=== PATIENT | male | born 1940 | race Caucasian/White ===

== ENCOUNTER 2017-09-25 14:08 | Emergency (ER) | payer MEDICARE ==
[2017-09-25 14:25] VITALS: BP 155/76
--- NOTE | 2017-09-25 14:41 | UC ---
Migue Gilmore Jason, scribed for Christian Freed MD on 09/25/17 at 1430 . Dizzy HPI HPI Summary: This patient is a 76 year old M presenting to [facility] accompanied by with a chief complaint of dizziness since today at 13:40. He states that he has been feeling dizzy for a couple of days, as if I was beginning to black out. Additionally, today he began feeling dizzy after a workout at the gym and experienced chest pain at 1340 along with the dizziness. He includes that he has experienced this pain for a long time. Its not new; the only thing thats new is that the pain came at the same time as the dizziness. The patient states he has been working out off and on. The patient rates the pain 0/10 in severity. Symptoms aggravated by nothing. Symptoms alleviated by nothing. Patient reports lightheadedness, and mild chest pain. Patient denies nausea, sweat, vomiting, and a hx of diabetes and smoking. - History Of Current Complaint Stated Complaint: CHEST PAIN/ DIZZINESS Time Seen by Provider: 09/25/17 14:17 Hx Obtained From: Patient Onset/Duration: Gradual Onset, Lasting Days - since a "few days ago", Resolved Pain Intensity: 0 Pain Scale Used: 0-10 Numeric Character: Lightheaded - as if eh was about to black out Aggravating Factor(s): Nothing Alleviating Factor(s): Nothing Associated Signs And Symptoms: Positive: Negative - nausea, sweat, vomiting, Chest Pain - mild - Allergies/Home Medications Allergies/Adverse Reactions: Allergies Allergy/AdvReac Type Severity Reaction Status Date / Time No Known Allergies Allergy Verified 04/26/17 10:10 PMH/Surg Hx/FS Hx/Imm Hx Previously Healthy: Yes Endocrine History: Other - negative diabetes Other Endocrine History: . - Surgical History Surgical History: Yes Surgery Procedure, Year, and Place: BILATERAL KNEE REPLACEMENT 1999,2007. BILAT CATARACT [facility]. SURGERY DETACHED RETINA-PER PT INJECTED AIR BUBBLE AND FIXED WITH LASER-OK PER AICHA. LUMBAR DISCECTOMY - Social History Alcohol Use: Daily Alcohol Amount: 2 glasses of wine Substance Use Type: None Smoking Status (MU): Never Smoked Tobacco Review of Systems Constitutional: Negative - sweat Cardiovascular: Chest Pain - mild Gastrointestinal: Negative - nausea, vomiting Neurological: Other - lightheaded All Other Systems Reviewed And Are Negative: Yes Physical Exam - Summary Physical Exam Summary: General: well-appearing, no pain distress Skin: warm, color reflects adequate perfusion, dry Head: normal Eyes: EOMI, ALEXI ENT: normal Neck: supple, nontender Respiratory: CTA, breath sounds present Cardiovascular: RRR Abdomen: soft, nontender Bowel: present Musculoskeletal: normal, strength/ROM intact Neurological: normal, sensory/motor intact, A&O x3 Psychological: affect/mood appropriate Triage Information Reviewed: Yes Vital Signs: Initial Vital Signs Temp 98.1 F 09/25/17 14:14 Pulse 59 09/25/17 14:14 Resp 18 09/25/17 14:14 BP 155/76 09/25/17 14:14 Pulse Ox 99 09/25/17 14:14 Vital Signs Reviewed: Yes Dizzy Course/Dx - Course Course Of Treatment: BP noted and advised to follow up with PCP. Medications reviewed. Allergies noted. NO CHEST PAIN IN CLINIC. NO ISCHEMIC CHANGES ON EKG. DISCUSSED GETTING FURTHER EVALUATION AND CARE IN THE ED AND GOING BY AMBULANCE. PATIENT DECLINES THE AMBULANCE. DISCUSSED WITH DR RIVERA IN THE ED. I RECOMMENDED GOING DIRECTLY TO THE ED. - Differential Dx/Diagnosis Provider Diagnoses: DIZZINESS. LIGHTHEADEDNESS. CHEST PAIN. elevated BP without dx of HTN. Discharge - Discharge Plan Condition: Stable Disposition: HOME Patient Education Materials: Chest Pain (ED), Lightheadedness (ED), Dizziness ( ED) Referrals: Malcom Workman MD [Primary Care Provider] - Additional Instructions: Your blood pressure was elevated during todays visit; please follow up with your primary care provider within a week for further evaluation. The documentation as recorded by the Migue altamirano Jason accurately reflects the service I personally performed and the decisions made by me, Christian Freed MD.
== END 2017-09-25 14:44 | disposition home or self-care (01) ==
LOC: UCEAST 14:08
DX: R42 Dizziness and giddiness (principal); R07.89 Other chest pain; Z96.653 Presence of artificial knee joint, bilateral; Z98.42 Cataract extraction status, left eye; Z98.41 Cataract extraction status, right eye
CPT/HCPCS: 93005; 99212; G0463

== ENCOUNTER 2017-09-25 14:54 | Observation (INO) | payer MEDICARE ==
[2017-09-25] MEDS ORDERED: Aspirin Low Dose CHEW TAB* 81 MG PO ONE (15:18)
[2017-09-25 15:36] LABS: ABS Basophils 0 10^3/ul (0-0.2); ABS Eosinophils 0.2 10^3/ul (0-0.6); ABS Lymphocytes 1.6 10^3/ul (1.0-4.8); ABS Monocytes 0.6 10^3/ul (0-0.8); ABS Neutrophils 4.7 10^3/ul (1.5-7.7); ABS Nucleated RBC 0 10^3/ul; Eosinophil % 2.7 % (0-6); Hematocrit 45 % (42-52); Hemoglobin 15.2 g/dl (14.0-18.0); Lymphocyte % 22.3 % (25-47); Mean Corpuscular HGB Conc 34 g/dl (31-36); Mean Corpuscular Hemoglobin 32 pg (27-31); Mean Corpuscular Volume 96 fL (80-94); Mean Platelet Volume 11 um3 (7.4-10.4); Nucleated Red Blood Cells % 0; Platelet Count 142 10^3/ul (150-450); Red Blood Count 4.71 10^6/ul (4.0-5.4); Red Cell Distribution Width 13 % (10.5-15); White Blood Count 7.1 10^3/ul (3.5-10.8)
[2017-09-25 15:45] LABS: INR 0.85 (0.77-1.02)
--- NOTE | 2017-09-25 15:45 | RAD ---
Indication: Dizziness. CT of the brain was performed without contrast. Ventricular structures are midline. No midline shift is noted. The extra-axial spaces are prominent consistent with cerebral atrophy.. There is no intracranial mass or hemorrhage. Periventricular lucency consistent with chronic ischemic White matter changes. Mastoid air cells and paranasal sinuses are otherwise. IMPRESSION: Chronic ischemic White change without evidence of intracranial mass or hemorrhage.
[2017-09-25 15:49] LABS: EGFR Non-African American 66.1 (>60)
--- NOTE | 2017-09-25 15:58 | RAD ---
Indication: Chest pain. Single frontal view of the chest performed at 1519 hours was reviewed. No prior study is available for comparison. No mediastinal shift is noted. Cardiomegaly is noted. Lung brady are clear. IMPRESSION: NO ACTIVE CARDIOPULMONARY DISEASE IS NOTED.
[2017-09-25] MEDS ORDERED: NS 0.9% 1000 ML* 1,000 ML BOLUS SCH (16:30)
[2017-09-25 17:23] LABS: Urine Appearance Clear; Urine Blood Negative (Negative); Urine Color Straw; Urine Ketones Negative (Negative); Urine Protein Negative (Negative); Urine Specific Gravity 1.005 (1.010-1.030); Urine Urobilinogen Negative (Negative)
[2017-09-25] MEDS ORDERED: NS 0.9% 1000 ML* 1,000 ML IV SCH (18:00)
[2017-09-25] MEDS ORDERED: ARIPiprazole TAB* 2 MG PO SCH (21:00)
--- NOTE | 2017-09-25 21:02 | HP ---
CC: Dr. Workman; Dr. Jack * HISTORY AND PHYSICAL: DATE OF ADMISSION: 09/25/17 PROVIDER: Diana Huffman NP ATTENDING PHYSICIAN: Dr. Briones * (report dictated by Diana Huffman NP). PRIMARY CARE PROVIDER: Dr. Workman. NEUROLOGIST: Dr. Jack. CHIEF COMPLAINT: Chest pain and dizziness. HISTORY OF PRESENT ILLNESS: Mr. Dc is a 76-year-old male with a past medical history of hypertension, depression, anxiety, and B12 deficiency, who presented to the emergency department today with complaint of chest pain and dizziness. Mr. Dc reports that he was at the gym reporting a short but intense workout where he became very dizzy, feeling like he was going to pass out as well as he experienced chest pain of the left upper chest wall concurrently. The patient reports that the chest pain lasted for 1 to 2 minutes and did not radiate nor did he have nausea or diaphoresis. He reports that he sat down and the dizziness resolved after a few minutes. His brought him to the emergency department for further evaluation. The patient reports that the dizziness and chest pain are actually not new. He reports he has had intermittent chest pain on the left side for many years. He reports he has undergone 1 stress test a long time ago, which was negative. No history of cardiac disease in the past. He reports his symptoms to be similar today in the same area on the left upper chest wall lasting for approximately 1 to 2 minutes and resolving. He reports there is no pattern to this chest pain, it could be happening when he is exerting himself or at rest. In regards to the dizziness, he reports that he has had dizziness and lightheadedness for approximately 1 to 2 months in which he reports over the past 1 to 2 days has worsened. He can experience this dizziness with position change, but not always. He reports that he frequently feels like he is going to pass out. He denies any syncopal episodes where he has lost consciousness. He denies any weakness, headaches or vision changes. Currently, the patient reports that he does not have chest pain or dizziness at this time. He denies any recent illnesses. No fevers, chills. His is at the bedside and reports his symptoms today were very different than prior symptoms he has experienced. In the emergency department, his initial troponin is 0.00 and EKG showing normal sinus rhythm with a heart rate between 55 and 65. In comparison to prior EKG in 2014, there were no acute changes noted. The patient denies any recent medication changes or new medications. PAST MEDICAL HISTORY: 1. Hypertension. 2. Anxiety. 3. Depression. 4. History of sepsis secondary to UTI approximately 4 years ago. 5. Essential tremors. PAST SURGICAL HISTORY: 1. Status post bilateral knee replacements. 2. Status post back surgery secondary to ruptured disk. CURRENT MEDICATIONS: 1. Ketoconazole 2% cream 1 application topical daily p.r.n. 2. Methylcobalamin (B12) 3000 mcg sublingual daily. 3. Colestipol 1 g p.o. b.i.d. with meals. 4. Abilify 2 mg p.o. daily. 5. Adderall XL 50 mg p.o. daily. 6. Norvasc 5 mg p.o. q.a.m. 7. Benazepril HCL 20 mg p.o. daily. 8. Aspirin 81 mg p.o. daily. ALLERGIES: No known allergies. FAMILY HISTORY: Reviewed and noncontributory. SOCIAL HISTORY: Denies tobacco abuse. Occasional alcohol use. The patient currently lives with his , Fay Sanchez, who is his healthcare proxy. Her number is [phone]. REVIEW OF SYSTEMS: A 14-point review of systems was performed. All the pertinent positives and negatives are mentioned in the history of present illness. Otherwise are negative. PHYSICAL EXAMINATION GENERAL APPEARANCE: Well-developed 76-year-old male, sitting up on the emergency department stretcher, alert and oriented x3, in no acute distress. Good historian. VITAL SIGNS: Temperature 97.8, heart rate 62, respirations 18, pulse oximetry was 99% on room air, blood pressure 139/70. HEENT: Head is normocephalic, atraumatic. Pupils equal, reactive to light. Oropharynx is clear. Moist mucous membranes. Good dentition. NECK: Supple. No cervical or supraclavicular lymphadenopathy. RESPIRATORY: Lungs are clear to auscultation bilaterally. Good aeration throughout. CARDIAC: S1, S2. Regular rate and rhythm. No murmurs, rubs, or gallops appreciated. No JVD noted. A trace lower extremity edema noted to bilateral lower extremities. 2+ DP pulses bilaterally. ABDOMEN: Obese, soft, nontender, nondistended. Normal bowel sounds throughout. MUSCULOSKELETAL: No clubbing, cyanosis noted. Full range of motion of all extremities. Strength is 5/5 throughout. SKIN: Warm, pink, dry. No rashes, wounds, or lesions noted. NEUROLOGIC: Cranial nerves II through XII are grossly intact. Moves all extremities equally. Sensation in the lower extremities intact to light touch. Slight left hand tremor noted. PSYCH: Slightly anxious. Appropriate to situation. DIAGNOSTIC STUDIES/LAB DATA: Sodium 137, potassium 3.9, chloride 101, carbon dioxide 31, anion gap 5, BUN 17, creatinine 1.08, glucose 92, lactic acid 1.8, calcium 10.5. Magnesium 2.3. Total bilirubin 0.80, AST 22, ALT 18, alkaline phosphatase 42. Total creatine kinase 203, CK-MB 8.6. Troponin 0.00. BNP 136. Total protein 7.2. Albumin 4.4. TSH 0.84. INR 0.85. D-dimer 209. WBC 7.1, RBC 4.71, Hgb 15.2, HCT 45, MCV 96, MCH 32, MCHC 34, RDW 13, platelet count 142. Urinalysis unremarkable. Serology: Influenza A and B are negative. Chest x-ray. Impression: No active cardiopulmonary disease is noted. Brain CT. Impression: Chronic ischemic white change without evidence of intracranial mass or hemorrhage. ASSESSMENT AND PLAN: Mr. Dc is a 76-year-old male with a past medical history of hypertension, depression, anxiety, essential tremor, who presents to the emergency department today with complaint of dizziness with a presyncopal sensation and left upper chest wall chest pain. The patient will be admitted to the hospitalist service on observation for chest pain to rule out acute coronary syndrome CS and monitoring for arrhythmias. 1. Chest pain. Plan will be for a cardiac nuclear stress test in the morning. He will be n.p.o. after midnight. Continue to monitor on telemetry. We will continue aspirin 81 mg p.o. daily. Will trend troponins. He has no elevated troponin at this time or changes in his EKG, but his symptoms are concerning and recommend a cardiac nuclear stress test at this time. 2. Dizziness with presyncopal sensation. Will obtain orthostatic vital signs. He received 1 L of normal saline in the emergency department. Will continue to give him normal saline at 125 mL an hour overnight. It is possible that his dizziness is secondary to dehydration or possible medication reaction as he is noted to be on Adderall and Abilify. Plan to hold Adderall at this time. As well, he is noted to have a slightly elevated calcium, which could be secondary to dehydration, but we will add on a vitamin D level and a PTH level as hyperparathyroidism can cause some dizziness. 3. B12 deficiency. Will add on B12 level as he is currently taking a supplementation, will hold at this time. 4. Hypertension. Continue Norvasc and MARTI inhibitor. 5. Depression/anxiety. We will continue Abilify. I plan to hold Adderall at this time as stated above. 6. Essential tremor. I do not think that the patient is currently on any medication for his essential tremor, appears to be fairly well controlled, but did note minor tremor in left hand on exam. He follows with Dr. Jack, who he saw a few months ago without any changes in his medication. 7. DVT prophylaxis. Heparin subcu. 8. Code status: Full code. 9. Hospital status: Observation to CDU. TIME SPENT: Approximately 60 minutes were spent on this admission. DIANA HUFFMAN, CELIA [id number]/CPS #: [id number] DANK
[2017-09-25] MEDS: Heparin VIAL(*) 5000 UNITS/ML VIAL (FIVE THOUSAND) SUBCUT SCH (22:14)
--- NOTE | 2017-09-25 23:18 | ED ---
Douglas Gilmore Stephanie, scribed for Amarilis Matson MD on 09/25/17 at 1518 . Dizziness - HPI Summary HPI Summary: The pt is a 76 y/o M presenting to the ED with c/o dizziness and CP that began s /p working out at the gym today at 12:00. The pt was referred by [facility]. The pt reports dizziness for the past few days. The pt states he could have passed out. The pt denies fever. The CP is sharp, intermittent, is located on the L anterior chest and lasted minutes at the most. The pt denies current CP. - History Of Current Complaint Chief Complaint: EDChestPainROMI Stated Complaint: CHEST PAIN-CC TRANSFER Time Seen by Provider: 09/25/17 15:04 Hx Obtained From: Patient Onset/Duration: Still Present, Suddenly - s/p working out Timing: Intermittent Episode Lasting - minutes Severity Currently: Mild Character: Lightheaded, Dizzy Aggravating Factor(s): Exertion Alleviating Factor(s): Nothing Associated Signs And Symptoms: Positive: Chest Pain - Allergies/Home Medications Allergies/Adverse Reactions: Allergies Allergy/AdvReac Type Severity Reaction Status Date / Time No Known Allergies Allergy Verified 04/26/17 10:10 Home Medications: Home Medications ARIPiprazole TAB* [Abilify 2 MG TAB*] 2 mg PO DAILY 09/25/17 [History Confirmed 09/25/17] Amphetamine/Dextroamph ER(NF) [Adderal XR (NF)] 15 mg PO DAILY 09/25/17 [ History Confirmed 09/25/17] Aspirin EC Low Dose* [Ecotrin EC Low Dose 81 MG*] 81 mg PO DAILY 09/25/17 [ History Confirmed 09/25/17] Benazepril HCl 20 mg PO DAILY 09/25/17 [History Confirmed 09/25/17] Clotrimazole/Betamethasone* [Lotrisone Cream*] 1 applic TOPICAL BID PRN [History Confirmed 09/25/17] Colestipol (NF) 1 gm PO BID WITH MEALS 09/25/17 [History Confirmed 09/25/17] Ketoconazole 2 % CREAM (NF) [Nizoral 2% CREAM (NF)] 1 applic TOPICAL DAILY PRN 09/25/17 [History Confirmed 02/25/18] Methylcobalamine (NF) [B-12] 3,000 mcg SL DAILY 09/25/17 [History Confirmed ] PMH/Surg Hx/FS Hx/Imm Hx Endocrine/Hematology History: Denies: Hx Diabetes Cardiovascular History: Reports: Hx Hypertension - WELL CONTROLLED Denies: Hx Pacemaker/ICD History: Denies: Hx Renal Disease Musculoskeletal History: Denies: Hx Scoliosis Sensory History: Reports: Hx Cataracts - BILATERAL, Hx Contacts or Glasses - GLASSES, Hx Hearing Aid Opthamlomology History: Reports: Hx Cataracts - BILATERAL, Hx Contacts or Glasses - GLASSES Neurological History: Reports: Other Neuro Impairments/Disorders Denies: Hx Headaches Psychiatric History: Denies: Hx Panic Disorder - Surgical History Surgery Procedure, Year, and Place: BILATERAL KNEE REPLACEMENT 1999,2007. [place] [facility] SURGERY DETACHED RETINA-PER PT INJECTED AIR BUBBLE AND FIXED WITH LASER-OK PER BILL. LUMBAR DISCECTOMY Hx Anesthesia Reactions: No Infectious Disease History: No Infectious Disease History: Denies: Traveled Outside the [place] in Last 30 Days - Family History Known Family History: Negative: Cardiac Disease - Social History Occupation: Retired Lives: With Family Alcohol Use: Daily Alcohol Amount: 2 glasses of wine Substance Use Type: Reports: None Smoking Status (MU): Never Smoked Tobacco Review of Systems Negative: Fever Positive: Chest Pain Neurological: Other - dizziness All Other Systems Reviewed And Are Negative: Yes Physical Exam - Summary Physical Exam Summary: Appearance: Ill-appearing, moderate pain distress, Well-nourished Skin: Warm, color reflects adequate perfusion Head: Normal Head/Face inspection Eyes: Conjunctiva clear ENT: Normal inspection Neck: Supple, no nodes, no JVD. Respiratory: Lungs clear, Normal breath sounds, no respiratory distress Cardio: RRR, No murmur, pulses normal, brisk capillary refill Abdomen: soft, nontender Bowel sounds: present Musculoskeletal: Strength Intact/ ROM intact. No calf tenderness. No edema. Neuro: Alert, muscle tone normal, facial symmetry, speech normal, sensory/motor intact Psychological: Normal Triage Information Reviewed: Yes Vital Signs On Initial Exam: Initial Vitals Temp Pulse Resp BP Pulse Ox 97.8 F 59 16 162/74 98 09/25/17 14:58 09/25/17 14:58 09/25/17 14:58 09/25/17 14:58 09/25/17 14:58 Vital Signs Reviewed: Yes Diagnostics - Vital Signs Vital Signs Temp Pulse Resp BP Pulse Ox 09/25/17 14:58 97.8 F 59 16 162/74 98 - Laboratory Result Diagrams: 09/25/17 15:16 09/25/17 15:16 Lab Statement: Any lab studies that have been ordered have been reviewed, and results considered in the medical decision making process. - CT Brain CT Interpretation: Positive (See Comments) CT Interpretation Completed By: Radiologist - Chronic ischemic White change without evidence of intracranial mass or hemorrhage. CXR CT Interpretation: No Acute Changes CT Interpretation Completed By: Radiologist - NO ACTIVE CARDIOPULMONARY DISEASE IS NOTED - EKG 15:01 Cardiac Rate: Bradycardia EKG Rhythm: Sinus Bradycardia - [address] Segment: Non-Specific Ectopy: None EKG Interpretation: prolonged IN interval (233) Nml IVCT, Nml QTc, L axis (-40) EKG Comparison: No Significant Change - compared to 12/25/13 Dizzy Course/Dx - Course Course Of Treatment: The pt was accepted for admission for further evaluation. - Diagnoses Provider Diagnoses: Dizziness, Chest pain Discharge - Discharge Plan Condition: Stable Disposition: ADMITTED TO [facility] documentation as recorded by the Douglas altamirano Stephanie accurately reflects the service I personally performed and the decisions made by Dano han Barbara J, MD.
[2017-09-26] MEDS: Heparin VIAL(*) 5000 UNITS/ML VIAL (FIVE THOUSAND) SUBCUT SCH (06:19)
[2017-09-26 06:24] LABS: ABS Basophils 0 10^3/ul (0-0.2); ABS Eosinophils 0.2 10^3/ul (0-0.6); ABS Lymphocytes 1.4 10^3/ul (1.0-4.8); ABS Monocytes 0.4 10^3/ul (0-0.8); ABS Neutrophils 2.2 10^3/ul (1.5-7.7); ABS Nucleated RBC 0 10^3/ul; Hematocrit 41 % (42-52); Hemoglobin 13.9 g/dl (14.0-18.0); Lymphocyte % 32.2 % (25-47); Mean Corpuscular HGB Conc 34 g/dl (31-36); Mean Corpuscular Hemoglobin 32 pg (27-31); Mean Corpuscular Volume 95 fL (80-94); Mean Platelet Volume 10 um3 (7.4-10.4); Nucleated Red Blood Cells % 0.1; Platelet Count 120 10^3/ul (150-450); Red Blood Count 4.29 10^6/ul (4.0-5.4); Red Cell Distribution Width 13 % (10.5-15); White Blood Count 4.2 10^3/ul (3.5-10.8)
[2017-09-26 06:42] LABS: EGFR Non-African American 57.4 (>60)
[2017-09-26] MEDS ORDERED: Regadenoson* 0.4 MG/5 ML SYRINGE ONE (08:56)
[2017-09-26] MEDS ORDERED: amLODIPine TAB* 5 MG PO SCH (09:00)
[2017-09-26] MEDS ORDERED: Aspirin EC Low Dose* 81 MG TAB.EC PO SCH (09:00)
[2017-09-26] MEDS ORDERED: Lisinopril TAB* 10 MG PO SCH (09:00)
--- NOTE | 2017-09-26 10:16 | RAD ---
INDICATION: Chest pain COMPARISON: None TECHNIQUE: A single day SPECT protocol was utilized. Rest images were acquired following the intravenous injection of 10.0 millicuries of technetium 99m tetrofosmin. Pharmacologic stress images were acquired following the intravenous administration of 25.7 millicuries of technetium 99m tetrofosmin. FINDINGS: There are no defects of the stress-induced or fixed nature. The bull's-eye images show an apparent defect but this is not confirmed on either the non attenuated corrected or attenuated corrected tomographic images which are believed to be more reliable. The cardiac chamber size is normal. There are no wall motion abnormalities. The ejection fraction is calculated at 63 percent during stress. IMPRESSION: NO DEFINITIVE DEFECTS OF THE STRESS-INDUCED OR FIXED NATURE. Normal wall motion and contractility ASSESSMENT: LOW-RISK Based on imaging criteria from ACC/AHA 2002 Guideline Update for the Management of Patients With Chronic Stable Angina Table 23. Noninvasive Risk Stratification.
[2017-09-26 11:24] VITALS: BP 148/77
--- NOTE | 2017-09-26 11:37 | PN ---
Subjective Date of Service: 09/26/17 Interval History: Mr. Dc states that he is feeling quite well and is eager for discharge to home. He denies chest pain or dizziness. Objective Active Medications: Amlodipine Besylate (Norvasc Tab*) 5 mg PO QAM LUZMA Aripiprazole (Abilify Tab*) 2 mg PO 2100 LUZMA Aspirin (Aspirin Ec Low Dose*) 81 mg PO DAILY [facility] Heparin Sodium (Porcine) (Heparin Vial(*)) 5,000 units SUBCUT Q8HR LUZMA Lisinopril (Prinivil Tab*) 20 mg PO DAILY [facility] Vital Signs: Temp Pulse Resp BP Pulse Ox 97.6 F 54 24 148/77 100 09/26/17 10:52 09/26/17 10:52 09/26/17 10:52 09/26/17 10:52 09/26/17 10:52 Oxygen Devices in Use Now: None Appearance: Male sitting up in bed in NAD Eyes: No Scleral Icterus Ears/Nose/Mouth/Throat: Mucous Membranes Moist Neck: Trachea Midline Respiratory: Symmetrical Chest Expansion and Respiratory Effort, Clear to Auscultation Cardiovascular: NL Sounds; No Murmurs; No JVD, No Edema Abdominal: NL Sounds; No Tenderness; No Distention Lymphatic: No Cervical Adenopathy Extremities: No Edema Skin: No Rash or Ulcers Neurological: Alert and Oriented x 3, NL Muscle Strength and Tone Result Diagrams: 09/26/17 06:01 09/26/17 06:01 Assess/Plan/Problems-Billing Assessment: Mr. Dc is a 76 yo male with a PMH of htn, anxiety, depression and B12 deficiency who was admitted on 09/25/17 with dizziness and chest pain. - Patient Problems (1) Dizziness Comment: - Resolved. - Suspect BPPV (history of same) or vestibulitis. (2) Chest pain Comment: - Troponins negative, EKG without ischemia. - Stress test normal, low risk. (3) CKD (chronic kidney disease) Comment: - Creatinine slightly up from baseline, but few data points available in EMR. - Recommend close follow up with PCP. (4) Hypertension Comment: - SBP 140s. - Continue amlodipine and lisinopril. (5) Depression Comment: - Continue abilify. (6) DVT prophylaxis (7) Full code status Status and Disposition: OBV. Discharge to home.
--- NOTE | 2017-09-27 07:26 | DS ---
CC: Dr. Workman DISCHARGE SUMMARY: DATE OF ADMISSION: 09/25/17 DATE OF DISCHARGE: 09/26/17 PRIMARY CARE PHYSICIAN: Dr. Workman. ATTENDING PHYSICIAN: Dr. Mike Joaquin (dictation provided by Ai Larose NP). PRIMARY DIAGNOSES: 1. Dizziness. 2. Chest pain. SECONDARY DIAGNOSES: 1. Depression. 2. Anxiety. 3. Hypertension. 4. History of sepsis secondary to UTI approximately 4 years ago. 5. Essential tremor. PAST SURGICAL HISTORY: 1. Status post bilateral knee replacement. 2. Status post back surgery secondary to ruptured disk. MEDICATIONS OUTPATIENT: As follows, there are no changes. 1. Ketoconazole 2% cream 1 application topically daily p.r.n. 2. Methscopolamine 3000 mcg sublingually daily. 3. Colestipol 1 g p.o. b.i.d. with meals. 4. Abilify 2 mg p.o. daily. 5. Adderall XL 50 mg p.o. daily. 6. Norvasc 5 mg p.o. q.a.m. 7. Benazepril 20 mg p.o. daily. 8. Aspirin 81 mg p.o. daily. HOSPITAL COURSE: Mr. Dc is a 76-year-old male with a past medical history of hypertension, anxiet y, and depression, who presented to the hospital on 09/25/17 with concern for chest pain and dizzines s. Please see the dictated H and P from Radha Sanchez NP for complete details. In brief, the pat ient reported that he was working out at the gym when he became dizzy and had left-sided chest pain. This episode lasted about 1 to 2 minutes. He reports that he has a history of benign paroxysmal pos itional vertigo many years ago. He also reported that his left-sided chest pain was intermittent for some time and not always associated with exertion. In the emergency room, he has troponin which was 0 and EKG, which showed no evidence of ischemia. Mr. Dc was admitted to the hospital. He had repeat troponins, which were also 0. The patient we nt out for a stress test today, which showed as low risk with no abnormalities evidenced. The patien t is chest pain free and has had no further dizziness. I questioned whether or not the patient's intermittent dizziness is related to possible BPPV or vesti bulitis. He had treated his own BPPV in the past with vestibular therapy performed at home and I rec ommended that I consider that if his dizziness is prolonged. I have also suggested that dizziness co uld be related to Abilify and/or Adderall. I suggested to him that Adderall usage in a 76-year-old m beltran should perhaps be reconsidered and that he should follow up with his psychiatrist if he is intere sted in doing so. The patient states the Adderall does not seem to be helping him with the symptoms any longer and he would like to consider switching to alternative agents. In the terms of chest pain , the patient states it is intermittent, it is not associated always with exertion. At this time, hi s cardiac workup has been negative. I recommend that he follow up outpatient with his primary care agustina vaughn if this continues to be an ongoing issues. I will note that he had a chest x-ray while here, which showed no active cardiopulmonary disease. Mr. Dc is medically stable for discharge to home. His lab abnormalities showed an elevated calci um level at 10.5 on arrival; however, on repeat, it was 9.6. His PTH was 4.5. His calcium PTH intac t was 10.1. It does not appear that his calcium was truly elevated. Also noted his creatinine is sl ightly elevated at 1.22 today. We saw him back in 2013, his creatinine at that point was 1.18, but we really have no other values available. I recommend that he follow up with the basic metabolic panel to check creatinine level and to follow up with Dr. Workman as needed for any further testing. Mr. Dc is medically stable for discharge to home. DISPOSITION: Home. DIET: Low fat, low salt. ACTIVITY: As tolerated. FOLLOWUP: Please follow up with Dr. Workman regarding elevated creatinine, and possible second opinio n on use of Adderall and Abilify with his psychiatrist. TIME SPENT: Approximately 60 minutes was spent on discharge of this patient; more than half the time was spent with the patient at the bedside reviewing the events leading up to this hospitalization, pe rforming the physical examination, and reviewing my plan of care. AI LAROSE, CASTING CARRIER [id number]/[facility] #: [id number]
== END 2017-09-26 13:00 | disposition home or self-care (01) ==
LOC: ED 14:54 → MEDTELE 17:50
PROVIDERS: ADMIT Internal Medicine; ATTEND Internal Medicine
DX: R42 Dizziness and giddiness (principal); R07.9 Chest pain, unspecified; F41.9 Anxiety disorder, unspecified; F32.9 Major depressive disorder, single episode, unspecified; I10 Essential (primary) hypertension; E53.8 Deficiency of other specified B group vitamins; G25.0 Essential tremor; Z79.899 Other long term (current) drug therapy; R00.0 Tachycardia, unspecified
CPT/HCPCS: 36415; 70450; 71045; 78452; 80048; 80053; 81003; 82306; 82550; 82553; 82607; 83036; 83605; 83735; 83880; 83970; 84443; 84484; 85025; 85379; 85610; 85730; 87502; 93005; 93017; 96360; 96361; 96372; 99283; A9270-GY; A9502; G0378; J1644; J2785